=== PATIENT | female | born 1980 | race Hispanic/Latino ===

== ENCOUNTER 2017-11-12 15:39 | Emergency (ER) | payer BC ==
[2017-11-12] MEDS ORDERED: IPRATROPIUM/ALBUTEROL SULFATE 3 ML SOLUTION IH ONE (16:06)
[2017-11-12 16:44] LABS: BASOPHILS % (AUTO) 0.7 % (0.0-5.0); EOSINOPHILS % (AUTO) 3.1 % (0.0-8.0); HEMATOCRIT 32.3 % (36-48); LYMPHOCYTES % (AUTO) 33.9 % (21.0-51.0); MEAN CORPUSCULAR HEMOGLOBIN 25.1 pg (27.0-33.0); MEAN CORPUSCULAR VOLUME 76.1 fL (79-99); MONOCYTES % (AUTO) 9.4 % (3.0-13.0); NEUTROPHILS % (AUTO) 52.9 % (40.0-77.0); PLATELET COUNT (AUTO) 246 K/uL (130-400); RED BLOOD CELL COUNT(AUTO) 4.24 MIL/uL (4.00-5.50); RED CELL DISTRIBUTION WIDTH 14.5 % (11.0-15.5)
[2017-11-12 17:11] LABS: CREATININE 0.6 mg/dL (0.5-1.5)
[2017-11-12 17:16] LABS: BILIRUBIN,TOTAL 0.1 mg/dL (0.2-1.0); TOTAL PROTEIN, SERUM 7.1 g/dL (6.0-8.3)
[2017-11-12 17:20] LABS: B-TYPE NATRIURETIC PEPTIDE 49 pg/mL (0-100)
== END 2017-11-12 18:36 | disposition home or self-care (01) ==
LOC: EDH 15:39
DX: K21.9 Gastro-esophageal reflux disease without esophagitis (principal)
CPT/HCPCS: 36415; 71046; 80053; 83880; 84703; 85025

== ENCOUNTER 2019-08-14 12:07 | Emergency (ER) | payer BC | END 2019-08-14 13:38 | disposition home or self-care (01) | LOC: EDH 12:07 | DX: J06.9 Acute upper respiratory infection, unspecified (principal) | CPT/HCPCS: 87804; 87880 ==

== ENCOUNTER 2019-08-24 05:59 | Emergency (ER) | payer BC ==
[2019-08-24] MEDS ORDERED: DEXAMETHASONE SOD PHOSPHATE 10MG/ML 1ML VIAL ONE (06:08)
== END 2019-08-24 06:14 | disposition home or self-care (01) ==
LOC: EDH 05:59
DX: B34.9 Viral infection, unspecified (principal)
CPT/HCPCS: 99283; J1100